=== PATIENT | male | born 1995 | race Asian ===

== ENCOUNTER 2019-11-27 15:22 | Emergency (ER) | payer OTHER ==
[~2019-11-27] VITALS: Ht 170.2 cm; Wt 61.3 kg
[2019-11-27] MEDS ORDERED: KETO2CR TOP (16:26)
[2019-11-27] MEDS ORDERED: BACT800T5 PO (16:26)
[2019-11-27 16:59] LABS: BASO # 0.1 10^3/uL (0.0-0.2); BASO % 1.6 % (0.0-1.0); EOS # 0.7 10^3/uL (0.0-0.5); EOS % 9.6 % (0.0-3.0); HEMATOCRIT 50.3 % (42.0-52.0); LYMPH # 2.8 10^3/uL (1.5-5.0); LYMPH % 40.7 % (24.0-44.0); MEAN CORPUSCULAR HEMOGLOBIN 26.4 pg (27.0-33.0); MEAN CORPUSCULAR HGB CONC 31.8 g/dl (32.0-36.5); MONO # 0.5 10^3/uL (0.0-0.8); MONO % 7.5 % (0.0-5.0); NEUTROPHILS # 2.8 10^3/uL (1.5-8.5); NEUTROPHILS % 40.5 % (36.0-66.0); PLATELET COUNT, AUTOMATED 223 10^3/uL (150-450); RED BLOOD COUNT 6.06 10^6/uL (4.30-6.10)
[2019-11-27 17:08] VITALS: BP 114/70
[2019-11-27 18:13] LABS: CHLAMYDIA DNA AMPLIFICATION NEGATIVE (NEGATIVE); GC DNA AMPLIFICATION NEGATIVE (NEGATIVE)
[2019-11-29 12:33] LABS: HEPATITIS B SURFACE ANTIBODY POSITIVE (POSITIVE); HEPATITIS B SURFACE ANTIGEN NEGATIVE (NEGATIVE); HEPATITIS C VIRUS ABY INDEX 0.1 INDEX (<0.8); HIV 1&2 SCREEN CENTAUR NEGATIVE (NEGATIVE)
== END 2019-11-27 17:20 | disposition home or self-care (01) ==
LOC: M ED 15:22
DX: B36.0 Pityriasis versicolor (principal); L73.9 Follicular disorder, unspecified

== ENCOUNTER → 2019-12-31 | Outpatient (CLI) | payer OTHER ==
[~2019-12-31] MED LIST: BACT800T5 PO; KETO2CR TOP
[2019-12-31 16:28] LABS: BASO # 0.1 10^3/uL (0.0-0.2); BASO % 1.8 % (0.0-1.0); EOS # 0.3 10^3/uL (0.0-0.5); EOS % 4.6 % (0.0-3.0); HEMATOCRIT 48.1 % (42.0-52.0); LYMPH % 53.4 % (24.0-44.0); MEAN CORPUSCULAR HEMOGLOBIN 25.8 pg (27.0-33.0); MEAN CORPUSCULAR HGB CONC 31.2 g/dl (32.0-36.5); MEAN CORPUSCULAR VOLUME 82.6 fl (80.0-96.0); MONO # 0.5 10^3/uL (0.0-0.8); MONO % 9.1 % (0.0-5.0); NEUTROPHILS # 1.8 10^3/uL (1.5-8.5); NEUTROPHILS % 30.9 % (36.0-66.0); PLATELET COUNT, AUTOMATED 225 10^3/uL (150-450); RED BLOOD COUNT 5.82 10^6/uL (4.30-6.10); WHITE BLOOD COUNT 5.7 10^3/uL (4.0-10.0)
[2019-12-31 16:51] LABS: ALBUMIN 4.2 GM/DL (3.2-5.2); ALT/SGPT 24 U/L (12-78); BILIRUBIN,TOTAL 0.6 MG/DL (0.2-1.0); BLOOD UREA NITROGEN 12 MG/DL (7-18); CALCIUM LEVEL 9.5 MG/DL (8.5-10.1); CARBON DIOXIDE LEVEL 31 MEQ/L (21-32); CHLORIDE LEVEL 106 MEQ/L (98-107); GLOMERULAR FILTRATION RATE > 60.0 (>60); GLUCOSE, FASTING 71 MG/DL (70-100); POTASSIUM SERUM 4.6 MEQ/L (3.5-5.1); SODIUM LEVEL 141 MEQ/L (136-145); TOTAL PROTEIN 7.6 GM/DL (6.4-8.2)
== END ==
LOC: M LAB 14:46
DX: R21 Rash and other nonspecific skin eruption (principal); L81.0 Postinflammatory hyperpigmentation; L81.8 Other specified disorders of pigmentation

== ENCOUNTER → 2020-02-02 | Outpatient (CLI) | payer OTHER | LOC: M LAB 10:23 | PROVIDERS: ATTEND Dermatology | DX: L20.84 Intrinsic (allergic) eczema (principal) ==

== ENCOUNTER → 2020-07-04 | Outpatient (CLI) | payer OTHER ==
[2020-07-04 15:49] LABS: BASO # 0.1 10^3/uL (0.0-0.2); BASO % 1.1 % (0.0-1.0); EOS # 0.2 10^3/uL (0.0-0.5); EOS % 2.4 % (0.0-3.0); HEMATOCRIT 43.1 % (42.0-52.0); HEMOGLOBIN 14.2 g/dl (13.5-17.5); LYMPH # 3.3 10^3/uL (1.5-5.0); MEAN CORPUSCULAR HEMOGLOBIN 27.4 pg (27.0-33.0); MEAN CORPUSCULAR HGB CONC 32.9 g/dl (32.0-36.5); MEAN CORPUSCULAR VOLUME 83.2 fl (80.0-96.0); MONO # 0.7 10^3/uL (0.0-0.8); MONO % 7.8 % (2.0-8.0); NEUTROPHILS % 53.4 % (36.0-66.0); PLATELET COUNT, AUTOMATED 218 10^3/uL (150-450); RED BLOOD COUNT 5.18 10^6/uL (4.30-6.10); WHITE BLOOD COUNT 9.3 10^3/uL (4.0-10.0)
[2020-07-04 16:16] LABS: ALBUMIN 3.8 GM/DL (3.2-5.2); ALT/SGPT 32 U/L (12-78); BILIRUBIN,TOTAL 0.2 MG/DL (0.2-1.0); BLOOD UREA NITROGEN 23 MG/DL (7-18); CALCIUM LEVEL 8.8 MG/DL (8.5-10.1); CARBON DIOXIDE LEVEL 26 MEQ/L (21-32); CHLORIDE LEVEL 109 MEQ/L (98-107); CREATININE FOR GFR 1.22 MG/DL (0.70-1.30); GLOMERULAR FILTRATION RATE > 60.0 (>60); GLUCOSE, FASTING 90 MG/DL (70-100); SODIUM LEVEL 140 MEQ/L (136-145); TOTAL PROTEIN 6.8 GM/DL (6.4-8.2)
== END ==
LOC: M LAB 15:29
PROVIDERS: ATTEND Dermatology
DX: L20.89 Other atopic dermatitis (principal); L81.0 Postinflammatory hyperpigmentation; Z71.89 Other specified counseling

== ENCOUNTER 2021-01-28 00:06 | Emergency (ER) | payer OTHER ==
[~2021-01-28] VITALS: Ht 170.2 cm; Wt 59.1 kg
--- OUTSIDE RECORDS SUMMARY | 2021-01-28 00:12 | CCD ---
Author Author [facility] Organization [facility] Address Unknown Phone Unavailable Care Team Providers Care Steam Fitter Name Role Phone Shalini Go MD Unavailable Unavailable Re-disclosure Warning The records that you are about to access may contain information from federally-assisted alcohol or drug abuse programs. If such information is present, then the following federally mandated warning applies: This information has been disclosed to you from records protected by federal confidentiality rules (42 CFR part 2). The federal rules prohibit you from making any further disclosure of this information unless further disclosure is expressly permitted by the written consent of the person to whom it pertains or as otherwise permitted by 42 CFR part 2. A general authorization for the release of medical or other information is NOT sufficient for this purpose. The Federal rules restrict any use of the information to criminally investigate or prosecute any alcohol or drug abuse patient.The records that you are about to access may contain highly sensitive health information, the redisclosure of which is protected by Article 27-F of the [facility] Public Health law. If you continue you may have access to information: Regarding HIV / AIDS; Provided by facilities licensed or operated by the [facility] Office of Mental Health; or Provided by the [facility] Office for People With Developmental Disabilities. If such information is present, then the following [facility] mandated warning applies: This information has been disclosed to you from confidential records which are protected by state law. State law prohibits you from making any further disclosure of this information without the specific written consent of the person to whom it pertains, or as otherwise permitted by law. Any unauthorized further disclosure in violation of state law may result in a fine or usp sentence or both. A general authorization for the release of medical or other information is NOT sufficient authorization for further disc losure. Encounters Encounter Providers Location Date Indications Data Source(s ) Outpatient Attender: Shalini Go MD 05/04/2020 0 6:55:00 PM [facility] Intrinsic (allergic) eczema [facility] Intrinsic (allergic) eczema Immunizations Vaccine Date Status Description Data Source(s) COVID-19 VACCINE [place] 07/06/2020 12:00:00 AM EDT completed [facility] Vaccine Series Complete: YESThis Data wa s Submitted to [facility]. Medications No Information Insurance Providers Payer name Policy type / Coverage type Policy ID Covered constitution party ID Covered constitution party's relationship to key Policy Key Plan Information SELF PAY [id number] SELF [id number] [employer] [id number] SP [id number] Problems, Conditions, and Diagnoses Code Display Name Description Problem Type Effective Dates Data Source(s) L20.84 Intrinsic (allergic) eczema L20.84 - Intrinsic ( allergic) eczema Diagnosis 05/04/2020 06:55:00 PM [facility] Surgeries/Procedures No Information Results No Information Social History No Information
[2021-01-28] MEDS ORDERED: DUPI200P SQ (00:16)
--- OUTSIDE RECORDS SUMMARY | 2021-01-28 01:08 | CCD ---
Author Author [facility] Organization [facility] Address Unknown Phone Unavailable Care Team Providers Care Instructor Painting Name Role Phone Shalini Go MD Unavailable [...] is protected by Article 27-F of the [facility] Public Health law. If you continue you may have access to information: Regarding HIV / AIDS; Provided by facilities licensed or operated by the [facility] Office of Mental Health; or Provided by the [facility] Office for People With Developmental Disabilities. If such information is present, then the following [facility] mandated warning applies: This information has been [...] law may result in a fine or shelter sentence or both. A general authorization for the release of medical or other information is NOT sufficient authorization for further disc losure. Encounters Encounter Providers Location Date Indications Data Source(s ) Outpatient Attender: Shalini Go MD 05/04/2020 0 6:55:00 PM [facility] Intrinsic (allergic) eczema [facility] Intrinsic (allergic) eczema Immunizations Vaccine Date Status Description Data Source(s) COVID-19 VACCINE [place] 07/06/2020 12:00:00 AM EDT completed [facility] Vaccine Series Complete: YESThis Data wa s Submitted to [facility] Via [facility]. Medications No Information Insurance Providers Payer name Policy type / Coverage type Policy ID Covered republican ID Covered republican's relationship to key Policy Key Plan Information SELF PAY [id number] SELF [id number] [employer] [id number] SP [id number] Problems, Conditions, and Diagnoses Code Display Name Description Problem Type Effective Dates Data Source(s) L20.84 Intrinsic (allergic) eczema L20.84 - Intrinsic ( allergic) eczema Diagnosis 05/04/2020 06:55:00 PM [facility] Surgeries/Procedures No Information Results No Information Social History No Information
--- NOTE | 2021-01-28 03:02 | REPVR ---
PROCEDURE INFORMATION: Exam: XR Right Wrist Exam date and time: 01/28/2021 1:18 AM Age: 25 years old Clinical indication: Other: Injury TECHNIQUE: Imaging protocol: XR Right wrist. Views: 3 or more views. COMPARISON: No relevant prior studies available. FINDINGS: Bones/joints: Unremarkable AP and oblique views. Tiny punctate calcification along the palmar surface of the proximal carpal row without donor site. Questionable tiny punctate chip fracture, remote trauma, or accessory ossicle. Soft tissues: Normal. IMPRESSION: Unremarkable AP and oblique views. Tiny punctate calcification along the palmar surface of the proximal carpal row without donor site. Questionable tiny punctate chip fracture, remote trauma, or accessory ossicle. Electronically signed by: Glenn Mohamud On 01/28/2021 03:01:48 AM
[2021-01-28] MEDS ORDERED: ACETAMINOPHEN 325 MG TAB PO ONE (03:15)
[2021-01-28 03:24] VITALS: BP 130/80
--- NOTE | 2021-01-28 07:43 | ED PDOC ---
Post-Departure Follow-Up radiology repor tfaxed [facility] Mayra Avila MD Jan 28, 2021 07:43
== END 2021-01-28 03:25 | disposition home or self-care (01) ==
LOC: M ED 00:06
DX: S69.91XA Unspecified injury of right wrist, hand and finger(s), initial encounter (principal); W00.0XXA Fall on same level due to ice and snow, initial encounter; Y92.009 Unspecified place in unspecified non-institutional (private) residence as the place of occurrence of the external cause; Y93.9 Activity, unspecified; Y99.9 Unspecified external cause status